=== PATIENT | male | born 1975 | race Caucasian/White ===

== ENCOUNTER 2019-12-26 19:36 | Emergency (ER) | payer BC, SELFPAY ==
[2019-12-26 19:45] VITALS: BP 142/91; PULSE 89; RESP 18; TEMP 36.7; O2SAT 98
--- NOTE | 2019-12-26 19:53 | ED.SKABFB ---
HPI - Skin/Abscess/Foreign Bdy General Chief complaint: Skin/Abscess/Foreign Body Stated complaint: Insect bite on hand Time Seen by Provider: 12/26/19 19:49 Source: patient and RN notes reviewed Mode of arrival: ambulatory History of Present Illness HPI narrative: Patient presents today complaining of redness and possible abscess to his right fourth finger x4 days. Denies any wounds noted prior to abscess forming. He does report history of abscesses in the past. States he has had a little bit of drainage from the area, but it continues to worsen. He has tried no other medications or interventions prior to arrival. MD complaint: abscess/boil Related Data Allergies Allergy/AdvReac Type Severity Reaction Status Date / Time ibuprofen AdvReac Unknown VOMITING Verified 04/15/15 14:23 Review of Systems Review of Systems: Narrative: CONSTITUTIONAL: Denies body aches, fever, chills, or sweats. EYES: Denies visual changes, redness, or discharge. ENT: Denies rhinorrhea, congestion, sore throat, or otalgia. CARDIOVASCULAR: Denies chest pain, palpitations, or edema. RESPIRATORY: Denies cough or dyspnea. GASTROINTESTINAL: Denies abdominal pain, nausea, vomiting, or diarrhea. GENITOURINARY: Denies dysuria or hematuria. SKIN: Denies rash, itching. + Redness and swelling to right fourth finger MUSCULOSKELETAL: Denies back pain, joint pain, or myalgia. NEUROLOGIC: Denies headache, numbness, tingling, or weakness. PSYCH: Denies depression or anxiety. PMFSH Social History Social History Gender identity (if verbalized by the patient): Male Comments At time of signature, I have reviewed and agree with nursing past medical, surgical, social and family history unless otherwise noted. Please see nursing chart for further information. There is no relevant family history pertinent to the presenting complaint Exam Narrative: Exam Narrative: GENERAL: Well-appearing, well-nourished, and in no acute distress. HEAD: Normocephalic, atraumatic. EYES: EOMI. No redness or drainage. Conjunctivae normal. ENT: Mucous membranes pink and moist. NECK: Normal AROM. CHEST: No respiratory distress. EXTREMITIES: Moderate edema and erythema to the right fourth finger with 1 x 0.5 cm area of fluctuance to the dorsum of the proximal phalanx with purulent material noted underneath the skin. Patient has full range of motion. Distal sensation intact. Capillary refill normal. SKIN: Warm, dry, no rash. NEURO: No focal deficits. Alert and oriented x3. Gait steady. PSYCH: Normal affect. No signs of depression or anxiety. Course Vital Signs Vital signs: Vital Signs Temperature 98.1 F 12/26/19 19:45 Pulse Rate 89 12/26/19 19:45 Respiratory Rate 18 12/26/19 19:45 Blood Pressure 142/91 H 12/26/19 19:45 Pulse Oximetry 98 12/26/19 19:45 Temperature 98.1 F 12/26/19 19:45 Pulse Rate 89 12/26/19 19:45 Respiratory Rate 18 12/26/19 19:45 Blood Pressure 142/91 H 12/26/19 19:45 Pulse Oximetry 98 12/26/19 19:45 Reviewed. Pt has been instructed to follow up with his PCP regarding his elevated blood pressure today. Procedures Abscess I/D hand: Date of Incision: 12/26/19 Time of Incision: 19:53 Side (if applicable): right Sedation/analgesia: none Local Anesthetic: none Technique: incised with #11 blade Amount of fluid expressed (mL): 1 Irrigation: No Packing used?: none I&D Results: Pus and Blood Abcess I&D Additional Comments: dressed with bandaid MDM - Skin/Abscess/Foreign Bdy Differential Diagnosis Differential diagnosis: Likely abscess of skin or subcutaneous tissue, herpes zoster, cellulitis, eczema and impetigo Critical Care Time Critical Care Time Critical Care Time: No Discharge Plan Discharge Clinical Impression: Abscess of skin or subcutaneous tissue Patient Disposition: Home, Self-Care Condition: Stable Instructions: Antibiotic
== END 2019-12-26 20:10 | disposition home or self-care (01) ==
PROVIDERS: Emergency Provider Nurse Practitioner
DX: L02.511 Cutaneous abscess of right hand (principal)
CPT/HCPCS: 26010; 99213; G0463

== ENCOUNTER 2023-10-17 19:48 | Emergency (ER) | payer BC, SELFPAY ==
--- NOTE | 2023-10-17 19:54 | ED.GENADULT ---
HPI - General Adult General Chief complaint: Skin/Abscess/Foreign Body Stated complaint: bite on stomach Time Seen by Provider: 10/17/23 19:54 Source: patient Mode of arrival: ambulatory Limitations: no limitations History of Present Illness HPI narrative: 48-year-old male patient presents to the [facility] with complaints of a wound to the abdomen that he 1st noticed yesterday. Patient states he thought he might have gotten bit by spider. Patient states he did try and pop it yesterday but not much drainage came out. Patient states he has gotten worse today. Patient states he has had some chills but denies fevers that he is aware of. Patient does admit to smoking a pack a day denies any history of diabetes. Related Data Allergies Allergy/AdvReac Type Severity Reaction Status Date / Time ibuprofen AdvReac Unknown VOMITING Verified 10/17/23 19:53 Review of Systems Review of Systems: CONSTITUTIONAL: Denies fever, chills, or sweats. EYES: Denies visual changes, redness, or discharge. ENT: Denies rhinorrhea, congestion, sore throat, or otalgia. CARDIOVASCULAR: Denies chest pain, palpitations, or edema. RESPIRATORY: Denies cough or dyspnea. GASTROINTESTINAL: Denies abdominal pain, nausea, vomiting, or diarrhea. GENITOURINARY: Denies dysuria or hematuria. SKIN: Denies rash or itching. Positive wound and rash noted to the abdominal area under the belly button x2 days MUSCULOSKELETAL: Denies back pain, joint pain, or myalgia. NEUROLOGIC: Denies headache, numbness, or weakness. PSYCHIATRIC: Denies anxiety or depression. [facility] Social History Social History (Updated 10/17/23 @ 20:15 by MILAD Navarrete) Smoking status: Current every day smoker Tobacco type: cigarettes Gender identity (if verbalized by the patient): Male Comments At the time of my signature I agree with nursing past medical history, surgical, social, and family history. There is no relevant family history pertinent to the presenting complaint. Exam Narrative: GENERAL: Well-appearing, well-nourished, and in no acute distress. HEAD: Normocephalic, atraumatic. EYES: PERRLA and EOMI. ENT: Nares clear, no rhinorrhea or epistaxis. Mucous membranes moist. NECK: Supple. No lymphadenopathy CHEST: Clear to auscultation. No respiratory distress. HEART: Regular rate and rhythm. No murmur heard. Normal peripheral pulses. ABDOMEN: Soft, nontender, nondistended, normal active bowel sounds. EXTREMITIES: Normal range of motion. No edema. SKIN: Warm, dry, patient has a scabbed area under the belly button with firmness noted and warmth. Patient has very large erythemic area all across lower abdomen. No open wound or drainage. No fluctuant center NEURO: No focal deficits. Alert and oriented x3. Course Course Level of Care: Express Care Visit Vital Signs Vital signs: Vital Signs Temperature 37.3 C 10/17/23 20:01 Pulse Rate 111 H 10/17/23 20:01 Respiratory Rate 16 10/17/23 20:01 Blood Pressure 132/78 10/17/23 20:01 Pulse Oximetry 97 10/17/23 20:01 Oxygen Delivery Room Air 10/17/23 20:01 Temperature 37.3 C 10/17/23 20:01 Pulse Rate 111 H 10/17/23 20:01 Respiratory Rate 16 10/17/23 20:01 Blood Pressure 132/78 10/17/23 20:01 Pulse Oximetry 97 10/17/23 20:01 Oxygen Delivery Room Air 10/17/23 20:01 Vital signs reviewed Medical Decision Making MDM Narrative Medical decision making narrative: Discussed with patient it does appear that he has a cellulitis infection of the lower abdomen. Plan care patient discharged home with oral antibiotics. Encouraged patient to get antibiotics tonight. 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 Discussed with patient that if the antibiotic if the area continues to worsen he develops fevers, body aches or chills or any other worsening symptoms highly recommend that he go to
[2023-10-17 20:01] VITALS: BP 132/78; PULSE 111; RESP 16; TEMP 37.3; O2SAT 97
== END 2023-10-17 20:24 | disposition home or self-care (01) ==
PROVIDERS: Emergency Provider Nurse Practitioner Family
DX: L03.311 Cellulitis of abdominal wall (principal); F17.210 Nicotine dependence, cigarettes, uncomplicated
CPT/HCPCS: 99213; G0463